=== PATIENT | male | born 1950 ===

== ENCOUNTER 2016-08-01 06:42 | Day surgery (SDC) | payer MEDICARE, MEDICAID, OTHER ==
[~2016-08-01 06:42] MED LIST: ALKA-SELTZER O1 EACH PO; ALPH-E/SUCCI400 UNIT PO; AMARYL4 MG PO; AMBIEN10 M1 PO; ANTIVERT25 MG PO; ASPIRIN325 M1 PO; ASPIRIN325 M3 PO; ATIVAN1 M2 PO; CALCIUM CARBON500 M2 PO; CARAFATE1 G2 PO; CLOZARIL100 M1 PO; COLACE100 M1 PO; COREG12.5 M1 PO; COREG25 M1 PO; CPAP; DULCOLAX STOOL100 MG PO; FEXOFENADINE H180 MG PO; FISH OIL 1,2001 EAC4 PO; FLEXERIL10 MG PO; FLOVENT HFA1 PUF1 INH; FOLIC ACID1 M1 PO; GABAPENTIN600 M2 PO; GLIPIZIDE10 MG; HUMALOG MI100 UNIT/5 SC; HUMALOG100 UNIT/1 SC; HYDROCODON-ACE1 EA17 PO; HYDROCODON-ACE1 EAC8 PO; IMURAN50 M1 PO; INDERAL80 MG PO; INVANZ1 GM IV; LANTUS SOL100 UNIT/1 SC; LANTUS100 UNITS/ SC; LASIX40 M1 PO; LISINOPRIL5 MG; LOVASTATIN20 M2 PO; LOVASTATIN20 MG PO; LOVENOX30 MG/0.1; LOVENOX40 MG/0.1 SC; METFORMIN HCL1000 MG PO; MIDODRINE HCL5 M1 PO; MIRALAX17 G2 PO; NAPROSYN500 MG PO; NEURONTIN600 M1 PO; NICODERM CQ1 EAC1 TD; NOVOLOG100 UNITS/ SC; OMEPRAZOLE MAGN20 M1 PO; OXYCODONE/APAP PO; PERIDEX118 ML SSP; PRILOSEC20 MG PO; PROBIOTIC250 MG PO; PROPOXY-N-APAP1 TAB; PROTONIX40 M3 PO; REMERON15 M1 PO; REQUIP1 M1 PO; ROPINIROLE HCL1 M1 PO; SENOKOT-S TABLE1 TAB PO; SINEMET 10-1001 EAC1 PO; SLOW-MAG71.5 MG PO; STOOL SOFTENER; SYSTANE 0.3-0.4%5 ML OP; TIZANIDINE HCL4 M3 PO; TRICOR145 M1 PO; TUMS200 MG PO; TYLENOL325 M2 PO; VISION VITAMIN1 EAC2 PO; VITAMIN D-32000 UNI1 PO; ZOFRAN4 MG/5 M1 PO; ZOLOFT50 MG PO
[2016-08-01 09:05] LABS: BASO % 0.2 % (0-2); EOS % 2.9 % (0-7); EOSINOPHIL ABSOLUTE COUNT 0.4 tho/cmm (0.0-0.7); HCT-HEMATOCRIT 36.8 % (36.0-53.5); HGB-HEMOGLOBIN 11.9 gm/dl (13.5-17.0); IMMATURE GRANULOCYTES ABSOLUTE 0.05 tho/cmm (0-0.03); IMMATURE GRANULOCYTES PERCENT 0.4 % (0-0.3); LYMPH % 28.4 % (20-45); LYMPH ABSOLUTE COUNT 3.6 tho/cmm (0.8-4.5); MCH (MEAN CORPUSCULAR HGB) 29.9 pg (28.0-32.0); MCHC MEAN CORPUSCULAR HGB CONC 32.3 % (32.0-36.0); MCV (MEAN CELL VOLUME) 92.5 fl (82.0-96.0); MEAN PLATELET VOLUME 11.5 cmc (9.4-12.4); MONO % 6.6 % (0-12); MONOCYTE ABSOLUTE COUNT 0.8 tho/cmm (0.0-1.2); NEUTROPHIL ABSOLUTE COUNT 7.8 tho/cmm (1.6-8.0); NEUTROPHIL-AUTOMATED 7.8 tho/cmm (1.6-8.0); NEUTROPHILS % 61.5 % (40-80); PLATELET COUNT 420 tho/cmm (150-450); RED BLOOD COUNT 3.98 mil/cmm (4.40-5.70); RED CELL DISTRIBUTION WIDTH 16.1 % (12.4-16.4); WHITE BLOOD COUNT 12.7 tho/cmm (4.0-10.0)
[2016-08-01 09:08] LABS: INR 0.9 INR (0.9-1.1); PROTHROMBIN TIME 10.3 SECONDS (9.0-13.6)
[2016-09-13] MEDS ORDERED: VALTREX PO (15:20)
[2016-09-13] MEDS ORDERED: MORPHABOND ER15 MG PO (16:03)
[2016-09-13] MEDS ORDERED: ZOFRAN PO (16:04)
[2016-09-13] MEDS ORDERED: RESTORIL15 M1 PO (16:04)
[2016-09-13] MEDS ORDERED: COMPAZINE10 MG PO (16:04)
[2016-11-08] MEDS ORDERED: INDERAL XL80 MG PO (17:14)
[2016-11-08] MEDS ORDERED: IMURAN50 M1 PO (17:15)
[2016-11-08] MEDS ORDERED: CYCLOBENZAPRINE10 M1 PO (17:16)
[2016-11-08] MEDS ORDERED: SERTRALINE HCL50 M4 PO (17:16)
[2016-11-08] MEDS ORDERED: AMBIEN10 M1 PO (17:18)
[2016-11-08] MEDS ORDERED: TRAVEL-EASE25 M1 PO (17:18)
[2016-11-08] MEDS ORDERED: LINZESS145 MC1 PO (17:19)
[2016-11-08] MEDS ORDERED: DULCOLAX10 MG (17:20)
[2016-11-08] MEDS ORDERED: HYDROCODON-ACE1 EA17 PO (17:21)
[2016-11-09] MEDS ORDERED: LANTUS100 UNITS/ SC (12:56)
[2016-11-09] MEDS ORDERED: HUMULIN R100 UNITS/ SC (12:57)
== END 2016-08-01 13:00 ==
LOC: SHSC 06:42
PROVIDERS: Radiology Diagnostic Radiology
PROC: 0FB03ZX Excision of Liver, Percutaneous Approach, Diagnostic (ICD-10-PCS; principal; 2016-08-01)
DX: C7A.1 Malignant poorly differentiated neuroendocrine tumors (principal); E11.42 Type 2 diabetes mellitus with diabetic polyneuropathy; I10 Essential (primary) hypertension; E78.00 Pure hypercholesterolemia, unspecified; E78.5 Hyperlipidemia, unspecified; K21.9 Gastro-esophageal reflux disease without esophagitis; G47.30 Sleep apnea, unspecified; Z87.891 Personal history of nicotine dependence; Z98.890 Other specified postprocedural states
CPT/HCPCS: J2250; J3010; J7030